=== PATIENT | female | born 2000 | race Caucasian/White ===

== ENCOUNTER 2024-03-15 16:10 | Inpatient (IN) | payer MEDICAID, OTHER ==
--- NOTE | 2024-03-15 17:44 | ED ---
General Adult HPI - General Chief complaint: Psychiatric Symptoms Stated complaint: Mental health Time Seen by Provider: 03/15/24 17:42 Source: patient, family Mode of arrival: ambulatory Limitations: language barrier, physical limitation - History of Present Illness Initial comments: Dictation was produced using [employer] dictation software. please excuse any grammatical, word or spelling errors. Chief Complaint: 24-year-old female presents for psychiatric evaluation History of Present Illness: Patient 24-year-old female with psychiatric illness presents to the emergency department mother for psychiatric evaluation. Patient apparently has had psychiatric issues in the past. She has been diagnosed with formal psychiatric disease. She has history of cochlear implant and is hard of hearing at baseline. Mother states that she has been having trouble sleeping and has been having several episodes of random crying. Patient denies any suicidal homicidal ideation. Mother and patient feel that patient needs psychiatric admission. The ROS documented in this emergency department record has been reviewed and confirmed by me. Those systems with pertinent positive or negative responses have been documented in the HPI. All other systems are other negative and/or noncontributory. - Related Data Allergies Allergy/AdvReac Type Severity Reaction Status Date / Time No Known Allergies Allergy Verified 03/15/24 16:25 Review of Systems ROS Statement: Those systems with pertinent positive or pertinent negative responses have been documented in the HPI. ROS Other: All systems not noted in ROS Statement are negative. Past Medical History Additional Past Medical History / Comment(s): Deaf - reads lips only, passive aggressive borderline personality disorder, History of Any Multi-Drug Resistant Organisms: None Reported Additional Past Surgical History / Comment(s): Cocular implant insertion Past Psychological History: Anxiety, Depression Smoking Status: Never smoker Past Alcohol Use History: None Reported Past Drug Use History: None Reported General Exam - General Exam Comments Initial Comments: General: Well-appearing, nontoxic, no acute distress. Head: Normocephalic, atraumatic Eyes: PERRLA, EOMI ENT: Airway patent Chest: Nonlabored breathing Skin: No visual rash, normal skin tone Neuro: Alert and oriented 3 Musculoskeletal: No gross abnormalities Limitations: language barrier, physical limitation Course Vital Signs 03/15/24 16:17 Temperature 98.5 F Pulse Rate 122 H Respiratory 18 Rate Blood Pressure 129/82 O2 Sat by Pulse 100 Oximetry Medical Decision Making - Medical Decision Making Was pt. sent in by a medical professional or institution (, PA, CONFERENCE INTERPRETER, urgent care, hospital, or longterm...) When possible be specific @ -No Did you speak to anyone other than the patient for history (EMS, parent, family, police, friend...)? What history was obtained from this source @ -Mother as described above Did you review nursing and triage notes (agree or disagree)? Why? @ -I reviewed and agree with nursing and triage notes Were old charts reviewed (outside hosp., previous admission, EMS record, old EKG, old radiological studies, urgent care reports/EKG's, longterm records)? Report findings @ -No old charts were reviewed Differential Diagnosis (chest pain, altered mental status, abdominal pain women, abdominal pain men, vaginal bleeding, musculoskeletal, weakness, fever, dyspnea, syncope, headache, dizziness, GI bleed, back pain, seizure, CVA, palpatations, mental health)? @ -Differential Mental Health: Depression, anxiety, bipolar, psychosis, schizophrenia, borderline personality, situational depression, adjustment disorder, behavioral disorder, brain tumor, malingering, substance abuse, encephalopathy, medication reaction, dementia, hypothyroidism, degenerative neurologic disorder, lupus.... This is not meant to be all-inclusive list EKG interpreted by me (3pts min.). @ -None done X-rays interpreted by me (1pt min.). @ -None done CT interpreted by me (1pt min.). @ -None done U/S interpreted by me (1pt. min.). @ -None done What testing was considered but not performed or refused? (CT, X-rays, U/S, labs)? Why? @ -None What meds were considered but not given or refused? Why? @ -None Was smoking cessation discussed for >3mins.? @ -No Were there social determinants of health that impacted care today? How? (Homelessness, low income, unemployed, alcoholism, drug addiction, transportation, low edu. Level, literacy, decrease access to med. care, group home, rehab)? @ -No Was there de-escalation of care discussed even if they declined (Discuss DNR or withdrawal of care, Hospice)? DNR status @ -No What co-morbidities impacted this encounter? (DM, HTN, Smoking, COPD, CAD, Cancer, CVA, ARF, Chemo, Hep., AIDS, mental health diagnosis, sleep apnea, morbid obesity)? @ -None Was patient admitted / discharged? Hospital course, mention meds given and route, prescriptions, significant lab abnormalities, going to OR and other pertinent info. @ -24-year-old female presents to the emergency department for psychiatric evaluation. Vital signs stable. Physical examination is unremarkable. Patient medically cleared for EPS evaluation Patient noted by EPS will be admitted to inpatient psychiatry unit. Did you discuss the management of the patient with other professionals (professionals i.e. , PA, CONFERENCE INTERPRETER, lab, RT, psych nurse, dialysis social worker, vending machine operator, teacher, parole or probation officer, bottle caser)? Give summary @ -Case discussed with EPS nurse Was critical care preformed (if so, how long)? @ -No Undiagnosed new problem with uncertain prognosis? @ -No Drug Therapy requiring intensive monitoring for toxicity (Heparin, Nitro, Insulin, Cardizem)? @ -No Were any procedures done? @ -No Diagnosis/symptom? Acute, or Chronic, or Acute on Chronic? Uncomplicated (without systemic symptoms) or Complicated (systemic symptoms)? @ -Psychiatric evaluation Side effects of treatment? @ -No Exacerbation, Progression, or Severe Exacerbation? @ -No Poses a threat to life or bodily function? How? (Chest pain, USA, OK, pneumonia, PE, COPD, DKA, ARF, appy, cholecystitis, CVA, Diverticulitis, Homicidal, Suicidal, threat to staff... and all critical care pts) @ -No - Lab Data Lab Results 03/15/24 03/15/24 Range/Units 18:40 18:40 Urine Opiates Screen Not Detected (NotDetected) Ur Oxycodone Screen Not Detected (NotDetected) Urine Methadone Screen Not Detected (NotDetected) Ur Barbiturates Screen Not Detected (NotDetected) U Tricyclic Antidepress Not Detected (NotDetected) Ur Phencyclidine Scrn Not Detected (NotDetected) Ur Amphetamines Screen Not Detected (NotDetected) U Methamphetamines Scrn Not Detected (NotDetected) U Benzodiazepines Scrn Not Detected (NotDetected) Urine Cocaine Screen Not Detected (NotDetected) U Marijuana (THC) Screen Detected H (NotDetected) Influenza Type A (PCR) Not Detected (Not Detectd) Influenza Type B (PCR) Not Detected (Not Detectd) RSV (PCR) Not Detected (Not Detectd) SARS-CoV-2 (PCR) Not Detected (Not Detectd) Disposition Clinical Impression: Encounter for psychiatric assessment Disposition: ADMITTED IP TO THIS [facility] Condition: Fair Referrals: Link Hidalgo MD [Primary Care Provider] - 1-2 days Decision Time: 22:36
[2024-03-15 19:01] LABS: Amphetamine Screen,Urine Not Detected (NotDetected); Barbiturate Screen,Urine Not Detected (NotDetected); Benzodiazepines Screen,Urine Not Detected (NotDetected); Cocaine Screen,Urine Not Detected (NotDetected); Methadone Screen, Urine Not Detected (NotDetected); Opiate Screen,Urine Not Detected (NotDetected); Oxycodone Screen, Urine Not Detected (NotDetected); Phencyclidine Screen,Urine Not Detected (NotDetected); Tricyclic Antidepressant,Urine Not Detected (NotDetected); Urn Cannabinoid Scrn Detected (NotDetected)
[2024-03-15] MEDS: ACETAMINOPHEN TAB 500 MG TAB PO STA (20:51)
[2024-03-15] MEDS ORDERED: diphenhydrAMINE 25 MG CAP PO PRN (22:53)
[2024-03-15] MEDS ORDERED: LORazepam 1 MG TAB PO PRN (22:53)
[2024-03-15] MEDS ORDERED: LORazepam 2 MG/ML INJ IM PRN (22:53)
[2024-03-15] MEDS ORDERED: ACETAMINOPHEN TAB 325 MG TAB PO PRN (22:53)
[2024-03-15] MEDS ORDERED: MAGNESIUM HYDROXIDE 2,400 MG/30 ML CUP PO PRN (22:53)
[2024-03-15] MEDS ORDERED: MAG HYDROX/AL HYDROX/SIMETH 355 ML BOTTLE PO PRN (22:53)
[2024-03-15] MEDS ORDERED: HALOPERIDOL LACTATE 5 MG/ML 1 ML VIAL IM PRN (22:53)
[2024-03-15] MEDS ORDERED: haloperidoL 5 MG TAB PO PRN (22:53)
[2024-03-16 01:32] LABS: Appearance,Urine Clear (Clear); Bilirubin,Urine Negative (Negative); Blood,Urine Negative (Negative); Color,Urine Colorless; Glucose,Urine (UA) Negative (Negative); Ketones,Urine Negative (Negative); Leukocyte Esterase,Urine Negative (Negative); Nitrite,Urine Negative (Negative); Protein,Urine Negative (Negative); Specific Gravity,Urine 1.013 (1.001-1.035); Urobilinogen,Urine <2.0 mg/dL (<2.0)
[2024-03-16 08:35] LABS: Basophils % (A) 1 %; Eosinophils # (A) 0.2 k/uL (0-0.7); Eosinophils % (A) 3 %; HCT 40.6 % (34.0-46.0); Lymphocytes # (A) 2.9 k/uL (1.0-4.8); Lymphocytes % (A) 41 %; MCH 30.3 pg (25.0-35.0); MCV 94.7 fL (80.0-100.0); Mean Platelet Volume 7.2; Monocytes # (A) 0.4 k/uL (0-1.0); Monocytes % (A) 6 %; Neutrophils # (A) 3.3 k/uL (1.3-7.7); Neutrophils % (A) 47 %; Platelet Count 283 k/uL (150-450); RBC 4.29 m/uL (3.80-5.40); RDW 12.3 % (11.5-15.5)
[2024-03-16 08:45] LABS: ALT 15 U/L (4-34); AST 21 U/L (14-36); African American GFR (CKD) >90 (>60 ml/min/1.73 sqM); Albumin 4.9 g/dL (3.5-5.0); Alkaline Phosphatase 66 U/L (38-126); Anion Gap 8 mmol/L; Blood Urea Nitrogen 9 mg/dL (7-17); Calcium 9.9 mg/dL (8.4-10.2); Carbon Dioxide 29 mmol/L (22-30); Chloride 103 mmol/L (98-107); Glucose 89 mg/dL (74-99); Non-African American GFR(CKD) >90 (>60 ml/min/1.73 sqM); Potassium 4.3 mmol/L (3.5-5.1); Sodium 140 mmol/L (137-145); Total Bilirubin 0.4 mg/dL (0.2-1.3); Total Protein 7.8 g/dL (6.3-8.2)
[2024-03-16] MEDS: ARIPiprazole 5 MG TAB PO SCH (09:30)
--- NOTE | 2024-03-16 11:26 | P.HP ---
Psychiatric H&P - . H&P Date: 03/16/24 History & Physical: Allergies Allergy/AdvReac Type Severity Reaction Status Date / Time No Known Allergies Allergy Verified 03/15/24 16:25 Vital Signs Temp 98.2 F 03/15/24 23:28 Pulse 96 03/15/24 23:28 Resp 18 03/15/24 23:28 BP 115/79 03/15/24 23:28 Pulse Ox 99 03/15/24 23:28 FiO2 Intake & Output 03/15/24 03/16/24 03/16/24 18:59 06:59 18:59 Weight 90.718 kg 93.8 kg Laboratory Last Values WBC 7.0 k/uL (3.8-10.6) 03/16/24 08:06 RBC 4.29 m/uL (3.80-5.40) 03/16/24 08:06 Hgb 13.0 gm/dL (11.4-16.0) 03/16/24 08:06 Hct 40.6 % (34.0-46.0) 03/16/24 08:06 MCV 94.7 fL (80.0-100.0) 03/16/24 08:06 MCH 30.3 pg (25.0-35.0) 03/16/24 08:06 MCHC 32.0 g/dL (31.0-37.0) 03/16/24 08:06 RDW 12.3 % (11.5-15.5) 03/16/24 08:06 Plt Count 283 k/uL (150-450) 03/16/24 08:06 MPV 7.2 03/16/24 08:06 Neutrophils % 47 % 03/16/24 08:06 Lymphocytes % 41 % 03/16/24 08:06 Monocytes % 6 % 03/16/24 08:06 Eosinophils % 3 % 03/16/24 08:06 Basophils % 1 % 03/16/24 08:06 Neutrophils # 3.3 k/uL (1.3-7.7) 03/16/24 08:06 Lymphocytes # 2.9 k/uL (1.0-4.8) 03/16/24 08:06 Monocytes # 0.4 k/uL (0-1.0) 03/16/24 08:06 Eosinophils # 0.2 k/uL (0-0.7) 03/16/24 08:06 Basophils # 0.0 k/uL (0-0.2) 03/16/24 08:06 Sodium 140 mmol/L (137-145) 03/16/24 08:06 Potassium 4.3 mmol/L (3.5-5.1) 03/16/24 08:06 Chloride 103 mmol/L (98-107) 03/16/24 08:06 Carbon Dioxide 29 mmol/L (22-30) 03/16/24 08:06 Anion Gap 8 mmol/L 03/16/24 08:06 BUN 9 mg/dL (7-17) 03/16/24 08:06 Creatinine 0.77 mg/dL (0.52-1.04) 03/16/24 08:06 Est GFR (CKD-EPI)AfAm >90 (>60 ml/min/1.73 sqM) 03/16/24 08:06 Est GFR (CKD-EPI)NonAf >90 (>60 ml/min/1.73 sqM) 03/16/24 08:06 Glucose 89 mg/dL (74-99) 03/16/24 08:06 Calcium 9.9 mg/dL (8.4-10.2) 03/16/24 08:06 Total Bilirubin 0.4 mg/dL (0.2-1.3) 03/16/24 08:06 AST 21 U/L (14-36) 03/16/24 08:06 ALT 15 U/L (4-34) 03/16/24 08:06 Alkaline Phosphatase 66 U/L (38-126) 03/16/24 08:06 Total Protein 7.8 g/dL (6.3-8.2) 03/16/24 08:06 Albumin 4.9 g/dL (3.5-5.0) 03/16/24 08:06 TSH 5.610 mIU/L (0.465-4.680) H 03/16/24 08:06 Urine Color Colorless 03/15/24 18:40 Urine Appearance Clear (Clear) 03/15/24 18:40 Urine pH 8.0 (5.0-8.0) 03/15/24 18:40 Ur Specific Sachse 1.013 (1.001-1.035) 03/15/24 18:40 Urine Protein Negative (Negative) 03/15/24 18:40 Urine Glucose (UA) Negative (Negative) 03/15/24 18:40 Urine Ketones Negative (Negative) 03/15/24 18:40 Urine Blood Negative (Negative) 03/15/24 18:40 Urine Nitrite Negative (Negative) 03/15/24 18:40 Urine Bilirubin Negative (Negative) 03/15/24 18:40 Urine Urobilinogen <2.0 mg/dL (<2.0) 03/15/24 18:40 Ur Leukocyte Esterase Negative (Negative) 03/15/24 18:40 Urine HCG, Qual Not Detected (Not Detectd) 03/15/24 18:40 Urine Opiates Screen Not Detected (NotDetected) 03/15/24 18:40 Ur Oxycodone Screen Not Detected (NotDetected) 03/15/24 18:40 Urine Methadone Screen Not Detected (NotDetected) 03/15/24 18:40 Ur Barbiturates Screen Not Detected (NotDetected) 03/15/24 18:40 U Tricyclic Antidepress Not Detected (NotDetected) 03/15/24 18:40 Ur Phencyclidine Scrn Not Detected (NotDetected) 03/15/24 18:40 Ur Amphetamines Screen Not Detected (NotDetected) 03/15/24 18:40 U Methamphetamines Scrn Not Detected (NotDetected) 03/15/24 18:40 U Benzodiazepines Scrn Not Detected (NotDetected) 03/15/24 18:40 Urine Cocaine Screen Not Detected (NotDetected) 03/15/24 18:40 U Marijuana (THC) Screen Detected (NotDetected) H 03/15/24 18:40 Influenza Type A (PCR) Not Detected (Not Detectd) 03/15/24 18:40 Influenza Type B (PCR) Not Detected (Not Detectd) 03/15/24 18:40 RSV (PCR) Not Detected (Not Detectd) 03/15/24 18:40 SARS-CoV-2 (PCR) Not Detected (Not Detectd) 03/15/24 18:40 03/16/24 10:31 IDENTIFYING DATA: Patient is a 24-year-old female, unemployed and living at home with mother CHIEF COMPLAINT: Psychosis HPI: Patient presented to the hospital with her mother for mental health concerns. EPS note revealed, "Clinical Science Consultant met with pt and her mother in ER RM 13 from [id number] [phone]. Patient was resting on stretcher, tearful, with blanket covering her face. Patient initially spoke with writer technical publications alone and then allowed writer technical publications to speak with mother. Per mother patient requested to come to the ER for help today, this has been an ongoing issue over the last 2 yrs. Patient states 2 yrs ago her boyfriend cheated on her over a period of 3 months and this was her first boyfriend, they broke up. A few months later (approx 1.5 yrs ago) pt reached out to her biological father who she had not seen since age 6, pt reached out to father on social media without her mother knowing. Per mother, pt has been labile, impulsive: had random man come to their house to fruit picker pt and he ended up taking her to [facility] but they were closing so the biological father from [place] drove to pick her up. Patient met with biological father, felt unsafe and called 911. During assessment, patient is focused on "people can't federal judge me or tell me I can't wear makeup, they can't look at my face". Patient admits to SI with no plan but has been picking her face since the incident with her father, pt states she stopped picking, however mother denies this and patient face was actively open in spots, bleeding. Patient focused on others looking at her, watching her. Patient denies HI, however pt mother states pt had told her 6 y/o niece she has a lot of knifes at the house where mom doesn't know. Patient teaful during assessment, stating " I have no friends, I have never fit in with the hearing world, I can't concentrate because so much is going on in my head". Patient denies A/VH. Patient appears to be obsessive during assessment, moving tongue all around her lips repeatedly; pt mother states pt was picking face in ER prior to writer technical publications entering. Pt mother states it is "like walking on egg shells" being around the pt because she often "goes off", yelling and having aggression towards family. Pt mother states pt sisters no longer let pt be around her nieces and nephews alone because they are afraid what pt may do or say to them. Pt repeatedly tells writer technical publications " everyone says wrong things to me, I don't deserve that". During assessment pt is focused on discussing her face and her "bio dad". Patient has not spoke to biologcal father since incident 1.5 yrs ago. Patient rates depression 12/31 and anxiety 10. Patient admits to SI with no plan. Patient has no IP psych hx. Patient is deaf and has cochlear implant, hearing aide. Patient has tried speaking with counselors over the last 2 yrs. Patient states "I can't concentrate to eat", Pt appears unkempt, denies issues with sleep but states she has so much going on in her mind. Patient does not take medications other then control. Pt mother states pt has never been tested for cognitive delay or autism, pt states she was in regular classes in school but had a para-pro helper." Patient seen and evaluated on the unit and was agreeable with speaking to writer technical publications in office. She was notably disorganized, wandering about the unit and asking where her room was. She states having issues with her mom because she looks like her dad. Patient was fixated on her face and how her mother made her feel due to her commenting on her face. Patient notably was A&Ox3. Patient states looking at her dad however her mother does not like her face. Patient reports grandiosity, difficulties with sleep, paranoia and was notably hyperverbal. Patient denies any appetite changes, anhedonia, energy changes, feeling guilty or racing thoughts. Patient denies any suicidal or homicidal ideations intent or plan. At this time patient denies any auditory or visual hallucinations. Patient admits to using no substances. PAST PSYCHIATRIC HISTORY: Patient denies any past psych history. Patient denies being on any psychiatric medications. Patient denies any previous psychiatric hospitalizations. Patient denies any psychiatric outpatient follow-up. Patient denies any history of suicide attempts in the past. PMH: as per ER note ALLERGIES: as per EMR SUBSTANCE USE HISTORY: Patient denies any substances FAMILY PSYCHIATRIC/SUBSTANCE USE HISTORY: Denies SOCIAL HISTORY: Patient was born and raised in [place]. She is single and has no children. She completed high school. She is unemployed. MENTAL STATUS EXAM: General Appearance: Patient appears to be stated age is alert, directable, and attempts to cooperate. Patient appears to have poor hygiene and grooming. Behavior: Patient is seated without any agitated behavior. She is notably tearful and anxious Speech: Patient's speech is hyperverbal but interruptible Mood/Affect: Patient reports their mood is "upset", affect is congruent and constricted. Suicidality/Homicidality: Patient denies having any homicidal ideation intent or plan. Denies any suicidal ideations intent or plan Perceptions: Patient denies any visual hallucinations and denies any auditory hallucinations Though content/process: There is evidence of disorganized thoughts, paranoia Memory and concentration: AOX3, grossly intact for the purposes of this session. Can spell "WORLD" backwards Judgment and insight: Poor STRENGTHS/WEAKNESSES: strength is that patient is resilient, has family support, uses no substances. Weakness is that patient has poor judgment and is impulsive INTELLECT: Average IMPRESSIONS: Psychosis unspecified Rule out schizophrenia versus schizoaffective disorder versus bipolar disorder Rule out intellectual disability PLAN: -Patient is admitted under voluntary status to MHU for stabilization of psychiatric symptoms and safety. Patient has signed adult voluntary form and medication consent and is placed in patient's chart. -Medications : Start Abilify 5 mg daily for psychosis -Ativan and Haldol PRN for agitation/aggression -Patient was informed of the risks, benefits and side effects of the medication and patient verbally consented to taking the medications. Patient signed med consent form and was placed in chart. -Internal Medicine consult to perform medical evaluation and physical. -NRT -not needed as patient does not smoke -SW on board for discharge planning. Encourage patient to participanot needed as patient does not smoke and Haldol medication consent adult voluntary form and voluntary Average has poor judgment and is impulsive resilient Poor and denies any auditory hallucinations Denies any suicidal ideations intent or plan poor directable, and attempts to cooperate Denies Patient denies any history of suicide attempts in the past. Patient denies any psychiatric outpatient follow- up. Patient denies any previous psychiatric hospitalizations. Patient denies being on any psychiatric medications. te in groups to work on coping skills. 03/16/24 11:26
--- NOTE | 2024-03-16 14:19 | P.MDCNMH ---
History of Present Illness H&P Date: 03/16/24 History of present illness; patient is a 24-year-old lady with past medical history significant for cochlear implant who presented to the ER for psychiatric evaluation. Patient was brought by her mother according to her patient has been very emotional recently and has been crying randomly. Patient has also been having trouble sleeping. Patient denies any auditory or visual hallucinations. Denies any suicidal or homicidal thoughts. Patient mother noted that the patient has labile mood and gets aggressive certainly. Initial lab work done in the ER showed CBC 7, hemoglobin 13, platelet count 283, sodium 141 potassium 4.3, BUN 9, creatinine 0.77, AST 21, ALT 15, UA negative for infection Urine drug screen positive for marijuana Influenza A not detected Influenza B not detected RSV not detected COVID-19 not detected Patient admitted to inpatient psychiatry REVIEW OF SYSTEMS: CONSTITUTIONAL: No fever, no malaise, no fatigue. HEENT: No recent visual problems or hearing problems. Denied any sore throat. CARDIOVASCULAR: No chest pain, orthopnea, PND, no palpitations, no syncope. PULMONARY: No shortness of breath, no cough, no hemoptysis. GASTROINTESTINAL: No diarrhea, no nausea, no vomiting, no abdominal pain. NEUROLOGICAL: No headaches, no weakness, no numbness. HEMATOLOGICAL: Denies any bleeding or petechiae. GENITOURINARY: Denies any burning micturition, frequency, or urgency. MUSCULOSKELETAL/RHEUMATOLOGICAL: Denies any joint pain, swelling, or any muscle pain. ENDOCRINE: Denies any polyuria or polydipsia. The rest of the 14-point review of systems is negative. PHYSICAL EXAMINATION: GENERAL: The patient is alert and oriented x3, not in any acute distress. Well developed, well nourished. HEENT: Pupils are round and equally reacting to light. EOMI. No scleral icterus. No conjunctival pallor. Normocephalic, atraumatic. No pharyngeal erythema. No thyromegaly. CARDIOVASCULAR: S1 and S2 present. No murmurs, rubs, or gallops. PULMONARY: Chest is clear to auscultation, no wheezing or crackles. ABDOMEN: Soft, nontender, nondistended, normoactive bowel sounds. No palpable organomegaly. MUSCULOSKELETAL: No joint swelling or deformity. EXTREMITIES: No cyanosis, clubbing, or pedal edema. NEUROLOGICAL: Gross neurological examination did not reveal any focal deficits. SKIN: No rashes. Assessment and plan Psychosis unspecified History of cochlear implant Monitor vital signs Elopement precaution Continue psych meds per psychiatry team Labs and medication were reviewed.. Continue same treatment. Continue with symptomatic treatment. Resume home medication. Monitor labs and vitals. DVT and GI prophylaxis. Further recommendations as per clinical course of the patient Dictation was produced using [employer] dictation software. please excuse any grammatical, word or spelling errors. Past Medical History Additional Past Medical History / Comment(s): Deaf, has cochlear implant History of Any Multi-Drug Resistant Organisms: None Reported Additional Past Surgical History / Comment(s): Cocular implant insertion Past Anesthesia/Blood Transfusion Reactions: No Reported Reaction Past Psychological History: Anxiety, Depression Smoking Status: Never smoker Past Alcohol Use History: None Reported Past Drug Use History: Marijuana - Past Family History Mother History Unknown: Yes Medications and Allergies Allergies Allergy/AdvReac Type Severity Reaction Status Date / Time No Known Allergies Allergy Verified 03/15/24 16:25 Physical Exam Vitals: Vital Signs Temp Pulse Pulse Resp BP BP Pulse Ox 03/15/24 23:28 98.2 F 96 18 115/79 99 03/15/24 23:12 98.0 F 107 H 16 126/64 98 03/15/24 16:17 98.5 F 122 H 18 129/82 100 Intake and Output 03/15/24 03/16/24 03/16/24 22:59 06:59 14:59 Other: Weight 93.8 kg 93.8 kg Cranial Nerve Examination - Cranial Nerves Cranial Nerve II- Optic: Intact (Cranial nerves II to XII intact) Cranial Nerve III- Oculomotor: Intact Cranial Nerve IV- Trochlear: Intact Cranial Nerve V- Trigeminal: Intact Cranial Nerve - Abducens: Intact Cranial Nerve VII- Facial: Intact Cranial Nerve VIII- Auditory: Intact Cranial Nerve IX- Glossopharyngeal: Intact Cranial Nerve X- Vagus: Intact Cranial Nerve XI- Accessory: Intact Cranial Nerve XII- Hypoglossal: Intact Results CBC & Chem 7: 03/16/24 08:06 03/16/24 08:06 Labs: Abnormal Lab Results - Last 24 Hours (Table) 03/15/24 03/16/24 Range/Units 18:40 08:06 TSH 5.610 H (0.465-4.680) mIU/L U Marijuana (THC) Screen Detected H (NotDetected)
[2024-03-16 15:42] LABS: Chol/HDL Ratio 2.68 Ratio; LDL Cholesterol,Calculated 106.9 mg/dL (0.0-131.0); VLDL Calculation 18.64 mg/dL (5.00-40.00)
[2024-03-17 07:03] VITALS: RESP 16
[2024-03-17] MEDS: ARIPiprazole 5 MG TAB PO ONE (09:25)
--- NOTE | 2024-03-17 09:28 | P.PN ---
Progress Note - Text Progress Note Date: 03/17/24 Interval History: Patient was seen in her room and was directable and agreeable to speak with wr iter in the office. Patient continues to display paranoia, disorganized and fixated thoughts on her parents and her mother treatment towards her. Patient states struggling with her mom being unhappy with her face since she looks like her dad. Attempted to redirect patient several times however she continued to return to her issues with her parents and her mother. She states otherwise sleeping and eating well. She states her mother will be visiting today for visitations. At this time patient denies any suicidal or homicidal ideations, intent or plan. Patient denies any auditory, visual hallucinations. Patient denies any side effects from the medications and has been compliant with meds. Mental Status Exam: General Appearance: Patient appears to be stated age is alert, directable, and cooperative. Behavior: Patient is calmly seated without any agitated behavior. Patient is tearful Speech: Patient's speech is fluent and nonpressured. Mood/Affect: Mood is improving mildly, affect is congruent and constricted. Suicidality/Homicidality: Patient denies having any suicidal or homicidal ideation intent or plan. Perceptions: Patient denies any visual hallucinations and denies any auditory hallucinations Though content/process: There is evidence of disorganized thoughts with paranoia Memory and concentration: AOX3, grossly intact for the purposes of this session Judgment and insight: Improving mildly Assessment Psychosis, unspecified Rule out schizophrenia versus schizoaffective disorder Rule out intellectual disability Plan: -Patient continues to meet criteria for inpatient psychiatric admission for symptom stabilization and safety. Patient has signed adult voluntary form and medication consent and was placed in patient's chart. -Medications: Increase Abilify to 7.5 mg daily for psychosis -When necessary Ativan and Haldol for agitation/aggression. -Labs: TSH elevated but free T4 within normal limits -SW on board for discharge planning. Encouraged the patient to participate in milieu.
[2024-03-18] MEDS: ARIPiprazole 10 MG TAB PO SCH (08:24)
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
[2024-03-19] MEDS ORDERED: FLUTICASONE NASAL 50MCG/SPRAY 16GM BTL EA NOSTRIL PRN (09:58)
[2024-03-19] MEDS: ARIPiprazole 5 MG TAB PO ONE (10:09)
--- NOTE | 2024-03-19 10:21 | P.PN ---
Progress Note - Text Progress Note Date: 03/19/24 Interval History: Patient was seen in the [facility] and was directable and agreeable to speak with commercial lines underwriter in the office. She states sleeping well however continues to display paranoia, feeling as though her mom was judging her face prior to admission however patient does appear to be less fixated on this than previous encounters. She states not speaking to her mother however she is okay with returning home with her. Patient talked about her employment, working at a [employer] for the last 7 years which provides her fulfillment. Patient states having difficulties with assimilating with society given her hearing impairments. At this time patient denies any suicidal or homicidal ideations, intent or plan. Patient denies any auditory, visual hallucinations and denies any delusions. Patient denies any side effects from the medications and has been compliant with meds. Mental Status Exam: General Appearance: Patient appears to be stated age is alert, directable, and cooperative. Behavior: Patient is calmly seated without any agitated behavior. Speech: Patient's speech is fluent and nonpressured. Mood/Affect: Mood is improving mildly, affect is congruent and blunted. Suicidality/Homicidality: Patient denies having any suicidal or homicidal ideation intent or plan. Perceptions: Patient denies any visual hallucinations and denies any auditory hallucinations Though content/process: There is evidence of paranoia and patient is fixated on mom judging her face however improving Memory and concentration: AOX3, grossly intact for the purposes of this session Judgment and insight: Improving mildly Assessment Psychosis, unspecified Rule out schizophrenia versus schizoaffective disorder Rule out intellectual disability Plan: -Patient continues to meet criteria for inpatient psychiatric admission for symptom stabilization and safety. Patient has signed adult voluntary form and medication consent and was placed in patient's chart. -Medications: Increase Abilify to 12.5 mg daily today for psychosis, will increase over the weekend -When necessary Ativan and Haldol for agitation/aggression. -Labs: TSH elevated however free T4 within normal limits -SW on board for discharge planning. Encouraged the patient to participate in milieu. Anticipate discharge early next week, home with mom
[2024-03-20] MEDS: ARIPiprazole 15 MG TAB PO SCH (07:49)
--- NOTE | 2024-03-20 12:08 | P.PN ---
Subjective Progress Note Date: 03/20/24 Principal diagnosis: psychosis NOS Patient was seen in the [facility] [place] and was directable and agreeable to speak with technical document writer in the office. She states sleeping well. She continues to display paranoia, feeling as though her mom was judging her face prior to admission. The patient says I look too much like my biological father that's why my mother hates me. she is fixated on trying to locate her biological father was not talk to her in 15 years. She has a vivid memory of her mom and dad arguing. The patient was 6 and was eating between them in the car and they were arguing over her. She says I love my dad and I want to contacthim. Mental Status Exam:she has a lot of trouble understanding simple sentences one has to keep her explaining. She tends to read statements in a negative way when there is nothing in the content that would suggest that. General Appearance: Patient appears to be stated age is alert, directable, and cooperative. Behavior: Patient is calmly seated without any agitated behavior. Speech: Patient's speech is fluent and nonpressured. Mood/Affect: Mood is improving mildly, affect is congruent and blunted. Suicidality/Homicidality: Patient denies having any suicidal or homicidal ideation intent or plan. Perceptions: Patient denies any visual hallucinations and denies any auditory hallucinations Though content/process: There is evidence of paranoia and patient is fixated on mom judging her face however improving Memory and concentration: AOX3, grossly intact for the purposes of this session Judgment and insight: Improving mildly. She says she is tolerating the medications well Assessment Psychosis, unspecified Rule out schizophrenia versus schizoaffective disorder Rule out intellectual disability Plan: -Patient continues to meet criteria for inpatient psychiatric admission for symptom stabilization and safety. Patient has signed adult voluntary form and medication consent and was placed in patient's chart. -Medications: Increase Abilify to 15 mg daily today for psychosis, will increase over the weekend -When necessary Ativan and Haldol for agitation/aggression. -Labs: TSH elevated however free T4 within normal limits -SW on board for discharge planning. Encouraged the patient to participate in milieu. Anticipate discharge early next week, home with mom Objective - Vital Signs Vital signs: Vital Signs Temp 97 F L 03/19/24 09:10 Pulse 115 H 03/19/24 09:10 Resp 16 12/25/24 06:51 BP 134/84 03/19/24 09:10 Pulse Ox 100 03/19/24 09:10 FiO2 - Labs CBC & Chem 7: 03/16/24 08:06 03/16/24 08:06
[2024-03-20] MEDS: IBUPROFEN 600 MG TAB PO PRN (19:07)
--- NOTE | 2024-03-21 10:12 | P.PN ---
Subjective Progress Note Date: 03/21/24 Principal diagnosis: psychosis NOS Patient was seen in the [facility] [place] and was directable and agreeable to speak with senior grant writer in the office. She statesthat she is sleeping well. she says she is eating well and that she is made up her mind she'll does have to set limits on mom and not let her bother her. She says "you can't really change people so he have to live with them the way they are" Mental Status Exam:she has a lot of trouble understanding simple sentences one has to keep explaining. I think this is probably from the hearing issue . She has good self-care gait and station are normal good eye contact. She is almost overly positive General Appearance: Patient appears to be stated age is alert, directable, and cooperative. Behavior: Patient is calmly seated without any agitated behavior. Speech: Patient's speech is fluent and nonpressured. Mood/Affect: Mood is positive, affect is congruent and blunted. Suicidality/Homicidality: Patient denies having any suicidal or homicidal ideation intent or plan. Perceptions: Patient denies any visual hallucinations and denies any auditory hallucinations Though content/process: There is evidence of paranoia and patient is fixated on mom judging her face however improving Memory and concentration: AOX3, grossly intact for the purposes of this session Judgment and insight: Improving mildly. She says she is tolerating the medications well Assessment Psychosis, unspecifiedwhich seems to be doing better on the Abilify 15 Rule out schizophrenia versus schizoaffective disorder Rule out intellectual disability Plan: -Patient continues to meet criteria for inpatient psychiatric admission for symptom stabilization and safety. Patient has signed adult voluntary form and medication consent and was placed in patient's chart. -Medications: continue Abilify 15 mg daily for psychosis -When necessary Ativan and Haldol for agitation/aggression. -Labs: TSH elevated however free T4 within normal limits -SW on board for discharge planning. Encouraged the patient to participate in milieu. Anticipate discharge early next week, home with momof any problems with that Abiliframírez think he had 15 last night what is Objective - Vital Signs Vital signs: Vital Signs Temp 97.5 F L 03/21/24 06:39 Pulse 114 H 03/21/24 06:39 Resp 16 03/21/24 06:39 BP 128/72 03/21/24 06:39 Pulse Ox 98 03/21/24 06:39 FiO2 - Labs CBC & Chem 7: 03/16/24 08:06 03/16/24 08:06
[2024-03-22] MEDS: ARIPiprazole 5 MG TAB PO ONE (10:37)
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
[2024-03-23 06:36] VITALS: BP 113/63; PULSE 99; TEMP 98.2
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
== END 2024-03-23 12:25 | disposition home or self-care (01) | DRG 751 ==
LOC: EC 16:10 → 3MHU 22:42
PROVIDERS: ADMIT Psychiatry & Neurology Psychiatry; ATTEND Psychiatry & Neurology Psychiatry
DX: F29 Unspecified psychosis not due to a substance or known physiological condition (principal); F42.4 Excoriation (skin-picking) disorder; F32.A Depression, unspecified; F41.9 Anxiety disorder, unspecified; F60.89 Other specific personality disorders; F60.3 Borderline personality disorder; H91.90 Unspecified hearing loss, unspecified ear; Z56.0 Unemployment, unspecified; Z79.899 Other long term (current) drug therapy
CPT/HCPCS: 80053; 80061; 80306; 81003; 81025; 82075; 83036; 84439; 84443; 85025; 87636; 99285

== ENCOUNTER 2024-05-20 18:27 | Emergency (ER) | payer OTHER ==
--- NOTE | 2024-05-20 18:42 | ED ---
Psych HPI - General Source: patient, family, RN notes reviewed Limitations: language barrier (deaf) <Shanel Lombardo - Last Filed: 05/20/24 18:41> - General Source: patient, family, RN notes reviewed Limitations: no limitations <Petros Guzman - Last Filed: 05/20/24 20:36> <Dulce Romo - Last Filed: 05/21/24 12:22> - General Stated Complaint: mental health Time Seen by Provider: 05/20/24 18:41 - History of Present Illness Initial Comments: Quick note: 24-year-old female accompanied by her mother presented to the ER for mental health evaluation. Patient is hard of hearing and HPI is obtained through mother. She states patient was recently admitted in February and diag nosed as bipolar. Patient is currently on Abilify 30 mg daily. Mother reports over the past week patient has been extremely manic and paranoid. No SI or HI. (Shanel Lombardo) Patient is a 24-year-old female present to the emergency department for mental health evaluation. Patient has history of depression. Patient is feeling hopeless. Patient is sleeping around 16 hours/day. Patient sometimes has loss of appetite. Patient did have similar symptoms hospitalized a couple months ago. Patient discharged on Abilify. On follow-up with primary care physician this was increased however patient still has worsening symptoms. No alcohol or street drug use. (Petros Guzman) - Related Data Home Medications Medication Instructions Recorded Confirmed ARIPiprazole [Abilify] 30 mg PO DAILY 05/20/24 05/20/24 Fluticasone Nasal [place] [Flonase 1 spr EA NOSTRIL DAILY 05/20/24 05/20/24 Nasal [place]] norgestimate-ethinyl estradioL 1 tab PO HS 05/20/24 05/20/24 [Tri-Sprintec Tablet] Previous Rx's Medication Instructions Recorded hydrOXYzine pamoate [Vistaril] 50 mg PO BID PRN 7 Days #14 capsule 05/20/24 Allergies Allergy/AdvReac Type Severity Reaction Status Date / Time No Known Allergies Allergy Verified 05/20/24 21:16 Review of Systems ROS Other: All systems not noted in ROS Statement are negative. <Shanel Lombardo - Last Filed: 05/20/24 18:41> ROS Other: All systems not noted in ROS Statement are negative. Constitutional: Denies: fever Eyes: Denies: eye pain ENT: Denies: ear pain Respiratory: Denies: cough Cardiovascular: Denies: chest pain Endocrine: Denies: fatigue Gastrointestinal: Denies: abdominal pain Psychiatric: Reports: as per HPI, anxiety, depression <Petros Guzman - Last Filed: 05/20/24 20:36> ROS Other: All systems not noted in ROS Statement are negative. <Dulce Romo - Last Filed: 05/21/24 12:22> ROS Statement: Those systems with pertinent positive or pertinent negative responses have been documented in the HPI. Past Medical History Additional Past Medical History / Comment(s): Deaf, has cochlear implant History of Any Multi-Drug Resistant Organisms: None Reported Additional Past Surgical History / Comment(s): Cocular implant insertion Past Anesthesia/Blood Transfusion Reactions: No Reported Reaction Past Psychological History: Anxiety, Depression Smoking Status: Never smoker Past Alcohol Use History: None Reported Past Drug Use History: Marijuana - Past Family History Mother History Unknown: Yes <Shanel Lombardo - Last Filed: 05/20/24 18:41> General Exam <Shanel Lombardo - Last Filed: 05/20/24 18:41> Limitations: no limitations General appearance: alert, in no apparent distress Head exam: Present: atraumatic Eye exam: Present: normal appearance ENT exam: Present: other (Cochlear implant present on the right) Neck exam: Present: normal inspection Respiratory exam: Present: normal lung sounds bilaterally Cardiovascular Exam: Present: regular rate, normal rhythm GI/Abdominal exam: Present: soft. Absent: tenderness Extremities exam: Present: normal inspection Neurological exam: Present: alert Psychiatric exam: Present: flat affect Skin exam: Present: normal color <Petros Guzman - Last Filed: 05/20/24 20:36> - General Exam Comments Initial Comments: Visual Physical Exam Vital signs reviewed General: Well-appearing, nontoxic, no acute distress. Head: Normocephalic, atraumatic Eyes: PERRLA, EOMI ENT: Airway patent Chest: Nonlabored breathing Skin: No visual rash, normal skin tone Neuro: Alert and oriented 3 Musculoskeletal: No gross abnormalities (Shanel Lombardo) Course Vital Signs 05/20/24 05/20/24 18:43 22:14 Temperature 98.0 F 98.4 F Pulse Rate 115 H 116 H Respiratory 20 16 Rate Blood Pressure 122/86 137/86 O2 Sat by Pulse 100 98 Oximetry Medical Decision Making <Shanel Lombardo - Last Filed: 05/20/24 18:41> <Petros Guzman - Last Filed: 05/20/24 20:36> <Dulce - Last Filed: 05/21/24 12:22> - Medical Decision Making I performed the quick note portion of this chart. Electronically signed by Shanel Lombardo PA-C (Shanel Lombardo) Was pt. sent in by a medical professional or institution (LEOBARDO Gregg, SCHOOL CURRICULUM DEVELOPER, urgent care, hospital, or jail...) When possible be specific @ -No Did you speak to anyone other than the patient for history (EMS, parent, family, police, friend...)? What history was obtained from this source @ -Mother is present and helps provide additional history including medication that the patient was on and dosing and recent visits Did you review nursing and triage notes (agree or disagree)? Why? @ -I reviewed and agree with nursing and triage notes Were old charts reviewed (outside hosp., previous admission, EMS record, old EKG, old radiological studies, urgent care reports/EKG's, jail records)? Report findings @ -No old charts were reviewed Differential Diagnosis (chest pain, altered mental status, abdominal pain women, abdominal pain men, vaginal bleeding, weakness, fever, dyspnea, syncope, headache, dizziness, GI bleed, back pain, seizure, CVA, palpatations, mental health, musculoskeletal)? @ -Differential Mental Health Depression, anxiety, bipolar, psychosis, schizophrenia, borderline personality, situational depression, adjustment disorder, behavioral disorder, brain tumor, malingering, substance abuse, encephalopathy, medication reaction, dementia, hypothyroidism, degenerative neurologic disorder, lupus.... This is not meant to be all-inclusive list EKG interpreted by me (3pts min.). @ -As above X-rays interpreted by me (1pt min.). @ -None done CT interpreted by me (1pt min.). @ -None done U/S interpreted by me (1pt. min.). @ -None done What testing was considered but not performed or refused? (CT, X-rays, U/S, labs)? Why? @ -None What meds were considered but not given or refused? Why? @ -None Did you discuss the management of the patient with other professionals (professionals i.e. , PA, SCHOOL CURRICULUM DEVELOPER, lab, RT, psych nurse, director social welfare, mail rider, teacher, occupational health and safety officer, case operator)? Give summary @ -No Was smoking cessation discussed for >3mins.? @ -Mental health nurse Was critical care preformed (if so, how long)? @ -No Were there social determinants of health that impacted care today? How? (Homelessness, low income, unemployed, alcoholism, drug addiction, transportation, low edu. Level, literacy, decrease access to med. care, half-way, rehab)? @ -No Was there de-escalation of care discussed even if they declined (Discuss DNR or withdrawal of care, Hospice)? DNR status @ -No What co-morbidities impacted this encounter? (DM, HTN, Smoking, COPD, CAD, Cancer, CVA, ARF, Chemo, Hep., AIDS, mental health diagnosis, sleep apnea, morbid obesity)? @ -History of depression with recent admission Was patient admitted / discharged? Hospital course, mention meds given and route, prescriptions, significant lab abnormalities, going to OR and other pertinent info. @ -Patient presents with worsening depression. Patient is sleeping 16 hours a day. Patient cleared to be seen and treated and further disposition by mental health. Undiagnosed new problem with uncertain prognosis? @ -No Drug Therapy requiring intensive monitoring for toxicity (Heparin, Nitro, Insulin, Cardizem)? @ -No Were any procedures done? @ -No Diagnosis/symptom? @ -Depression Acute, or Chronic, or Acute on Chronic? @ -Acute on chronic Uncomplicated (without systemic symptoms) or Complicated (systemic symptoms)? @ -Default Side effects of treatment? @ -No Exacerbation, Progression, or Severe Exacerbation? @ -No Poses a threat to life or bodily function? How? (Chest pain, [place], IA, pneumonia, PE, COPD, DKA, ARF, appy, cholecystitis, CVA, Diverticulitis, Homicidal, Suicidal, threat to staff... and all critical care pts) @ -No (Petros Guzman) I was alerted by EPS RN that patient has been safety planned and medically cleared for discharge home. Psychiatrist recommends 50 mg vistaril BID PRN. A script for one week of this will be sent to pt's pharmacy. Confirmed with patient and member at bedside that they are comfortable with this plan and ready for discharge. Patient was discharged in stable condition. (Dulce Romo) - Lab Data Lab Results 05/20/24 Range/Units 19:48 Urine Opiates Screen Not Detected (NotDetected) Ur Oxycodone Screen Not Detected (NotDetected) Urine Methadone Screen Not Detected (NotDetected) Ur Barbiturates Screen Not Detected (NotDetected) U Tricyclic Antidepress Not Detected (NotDetected) Ur Phencyclidine Scrn Not Detected (NotDetected) Ur Amphetamines Screen Not Detected (NotDetected) U Methamphetamines Scrn Not Detected (NotDetected) U Benzodiazepines Scrn Not Detected (NotDetected) Urine Cocaine Screen Not Detected (NotDetected) U Marijuana (THC) Screen Not Detected (NotDetected) Disposition <Shanel Lombardo - Last Filed: 05/20/24 18:41> Is patient prescribed a controlled substance at d/c from ED?: No <Petros Guzman - Last Filed: 05/20/24 20:36> Is patient prescribed a controlled substance at d/c from ED?: No <Dulce Romo - Last Filed: 05/21/24 12:22> Clinical Impression: Depression, Acute anxiety Disposition: HOME SELF-CARE Condition: Stable Instructions (If sedation given, give patient instructions): Anxiety (ED) Additional Instructions: Every disease is a spectrum and a small chance still exists that a serious condition could develop, for this reason, please monitor yourself closely for new, changing or worsening symptoms, symptoms that begin to improve in the next 72 hours, thoughts of wanting to kill or harm yourself, kill or harm others, seeing or hearing things that are not there, concerns for your safety, inability to tolerate/keep down fluids or your medications, inability to follow up with outpatient providers as instructed and should you experience these symptoms or should you have any further concerns for your wellbeing please return to the ED or call 911 immediately. Please follow safety plan as created between yourself and psychiatric nurse. PLEASE call your primary care physician as soon as possible to arrange / discuss plan for followup appointment. Appointment in the next 1-3 days is strongly encouraged if possible. PLEASE let us know here before you leave if there is anything further we can do to be of any assistance. Take care and feel Better! Prescriptions: hydrOXYzine pamoate [Vistaril] 50 mg PO BID PRN 7 Days #14 capsule PRN Reason: Anxiety Referrals: Link Hidalgo MD [Primary Care Provider] - 1-2 days
[2024-05-20 20:11] LABS: Amphetamine Screen,Urine Not Detected (NotDetected); Barbiturate Screen,Urine Not Detected (NotDetected); Benzodiazepines Screen,Urine Not Detected (NotDetected); Cocaine Screen,Urine Not Detected (NotDetected); Methadone Screen, Urine Not Detected (NotDetected); Opiate Screen,Urine Not Detected (NotDetected); Oxycodone Screen, Urine Not Detected (NotDetected); Phencyclidine Screen,Urine Not Detected (NotDetected); Tricyclic Antidepressant,Urine Not Detected (NotDetected); Urn Cannabinoid Scrn Not Detected (NotDetected)
[2024-05-20] MEDS: IBUPROFEN 600 MG TAB PO STA (21:15)
[2024-05-20 22:17] VITALS: BP 137/86; PULSE 116; RESP 16; TEMP 98.4
== END 2024-05-20 22:17 | disposition home or self-care (01) ==
LOC: EC 18:27
DX: F32.A Depression, unspecified (principal); F41.9 Anxiety disorder, unspecified; Z79.899 Other long term (current) drug therapy
CPT/HCPCS: 80306; 82075; 99283

== ENCOUNTER 2024-07-21 17:44 | Emergency (ER) | payer OTHER ==
[2024-07-21 18:06] VITALS: BP 128/82; PULSE 100; RESP 18; TEMP 98.7
--- NOTE | 2024-07-21 18:07 | ED ---
Psych HPI - General Source: family, RN notes reviewed Mode of arrival: ambulatory Limitations: no limitations <Martinez Shaffer - Last Filed: 07/21/24 18:04> - General Source: patient, family, RN notes reviewed, old records reviewed <Ramakrishna Daniel - Last Filed: 07/21/24 20:52> - General Stated Complaint: Mental health eval Time Seen by Provider: 07/21/24 18:00 - History of Present Illness Initial Comments: Quick note: This is a 24-year-old female presenting with mother for ongoing psychiatric symptoms. Mother states patient has been emotional, crying and yelling at her on almost daily basis. [facility] patient has had "no good days" for the past 2 years. [facility] patient was admitted through this ER on 03/15/2025 for 1 week, receiving diagnosis of bipolar disorder and currently taking Abilify and oxycarbazepine. [facility] patient saw a psychiatrist, Pedro Scherer, several weeks ago with her next appointment on 08/05/2024. [facility] patient also sees Dr. Hidalgo. Patient denies SI/HI. (Martinez Shaffer) Patient originally seen as a quick note. Presents with her mother for psychiatric evaluation. Has a history of deafness. Also history of bipolar. Has been compliant with medications. Apparently patient has been having more ups and downs lately in terms of mood. Patient's mother is concerned that may be related to medications. Wants her to be evaluated. Patient denies any suicidal or homicidal ideations, attempts, plans. Denies any hallucinations. Denies any drug use. Presents for further evaluation at this time. Originally seen as a quick note. I evaluate the patient when she was placed in a room. D oes follow-up with her psychiatrist. (Ramakrishna Daniel) - Related Data Home Medications Medication Instructions Recorded Confirmed Fluticasone Nasal [place] [Flonase 1 spr EA NOSTRIL DAILY 05/20/24 07/21/24 Nasal [place]] ARIPiprazole [Abilify] 20 mg PO DAILY 07/21/24 07/21/24 Medroxyprogesterone Acetate 150 mg IM Q90D 07/21/24 07/21/24 [Depo-Provera] OXcarbazepine 300 mg PO BID 07/21/24 07/21/24 Allergies Allergy/AdvReac Type Severity Reaction Status Date / Time No Known Allergies Allergy Verified 07/21/24 20:01 Review of Systems ROS Other: All systems not noted in ROS Statement are negative. <Martinez Shaffer - Last Filed: 07/21/24 18:04> ROS Other: All systems not noted in ROS Statement are negative. <Ramakrishna Daniel - Last Filed: 07/21/24 20:52> ROS Statement: Those systems with pertinent positive or pertinent negative responses have been documented in the HPI. Review of Systems: CONST: Denies fever EYES: Denies blurry vision ENT: Denies nasal congestion C/V: Denies Chest pain RESP: Denies shortness of breath GI: Denies abdominal pain : Denies dysuria SKIN: Denies rash. MSK: Denies joint pain. NEURO: Denies headache (Ramakrishna Daniel) Past Medical History Additional Past Medical History / Comment(s): Deaf, has cochlear implant History of Any Multi-Drug Resistant Organisms: None Reported Additional Past Surgical History / Comment(s): Cocular implant insertion Past Anesthesia/Blood Transfusion Reactions: No Reported Reaction Past Psychological History: Anxiety, Depression Smoking Status: Never smoker Past Alcohol Use History: None Reported Past Drug Use History: Marijuana - Past Family History Mother History Unknown: Yes <Martinez Shaffer - Last Filed: 07/21/24 18:04> General Exam <Martinez Shaffer - Last Filed: 07/21/24 18:04> <Ramakrishna Daniel - Last Filed: 07/21/24 20:52> - General Exam Comments Initial Comments: Visual Physical Exam Vital signs reviewed General: Well-appearing, nontoxic, no acute distress. Head: Normocephalic, atraumatic Eyes: PERRLA, EOMI ENT: Airway patent Chest: Nonlabored breathing Skin: No visual rash, normal skin tone Neuro: Alert and oriented 3 Musculoskeletal: No gross abnormalities (Martinez Shaffer) General: Appears in no acute distress. HEAD: Normal with no signs of head trauma. EYES: EOMI. ENT: Legal deafness RESPIRATORY: No respiratory distress. C/V: Regular rate and rhythm. ABD: Abdomen is nondistended. EXT: No obvious deformity. SKIN: No rashes or lesions observed on exposed skin. NEURO: Alert and oriented. (Ramakrishna Daniel) Course Vital Signs 07/21/24 18:00 Temperature 98.7 F Pulse Rate 100 Respiratory 18 Rate Blood Pressure 128/82 O2 Sat by Pulse 100 Oximetry Medical Decision Making <Martinez Shaffer - Last Filed: 07/21/24 18:04> <Ramakrishna Daniel - Last Filed: 07/21/24 20:52> - Medical Decision Making I completed the quick note portion of this chart signed LIEN Richter (Martinez Shaffer) Was pt. sent in by a medical professional or institution (LEOBARDO Gregg, TRAIN CONTROL TECHNICIAN, urgent care, hospital, or residential...) When possible be specific @ -No Did you speak to anyone other than the patient for history (EMS, parent, family, police, friend...)? What history was obtained from this source @ -Spoke with patient's mother who assist with patient's past medical history. Did you review nursing and triage notes (agree or disagree)? Why? @ -I reviewed and agree with nursing and triage notes Were old charts reviewed (outside hosp., previous admission, EMS record, old EKG, old radiological studies, urgent care reports/EKG's, residential records)? Report findings @ -No old charts were reviewed Differential Diagnosis (chest pain, altered mental status, abdominal pain women, abdominal pain men, vaginal bleeding, weakness, fever, dyspnea, syncope, headache, dizziness, GI bleed, back pain, seizure, CVA, palpatations, mental health, musculoskeletal)? @ -Differential Mental Health Depression, anxiety, bipolar, psychosis, schizophrenia, borderline personality, situational depression, adjustment disorder, behavioral disorder, brain tumor, malingering, substance abuse, encephalopathy, medication reaction, dementia, hypothyroidism, degenerative neurologic disorder, lupus.... This is not meant to be all-inclusive list EKG interpreted by me (3pts min.). @ -None none X-rays interpreted by me (1pt min.). @ -None done CT interpreted by me (1pt min.). @ -None done U/S interpreted by me (1pt. min.). @ -None done What testing was considered but not performed or refused? (CT, X-rays, U/S, labs)? Why? @ -None What meds were considered but not given or refused? Why? @ -None Did you discuss the management of the patient with other professionals (professionals i.e. , PA, TRAIN CONTROL TECHNICIAN, lab, RT, psych nurse, child protective services social worker, home connect lpn, teacher, foreign service officer, watch case polisher)? Give summary @ -No Was smoking cessation discussed for >3mins.? @ -No Was critical care preformed (if so, how long)? @ -No Were there social determinants of health that impacted care today? How? (Homelessness, low income, unemployed, alcoholism, drug addiction, transportation, low edu. Level, literacy, decrease access to med. care, intermediate, rehab)? @ -No Was there de-escalation of care discussed even if they declined (Discuss DNR or withdrawal of care, Hospice)? DNR status @ -No What co-morbidities impacted this encounter? (DM, HTN, Smoking, COPD, CAD, Cancer, CVA, ARF, Chemo, Hep., AIDS, mental health diagnosis, sleep apnea, morbid obesity)? @ -None Was patient admitted / discharged? Hospital course, mention meds given and route, prescriptions, significant lab abnormalities, going to OR and other pertinent info. @ -Based on the patient's presentation and physical exam, presents for mental health evaluation originally seen as a quick note. I evaluated the patient when she was placed in room. Is not a threat to herself or others currently. BAT is 0. UDS is pending. Patient is medically cleared for evaluation by psychiatry. Disposition pending psychiatric evaluation. EPS Smita notified of the consult. She evaluate the patient and determined with psychiatry that she does not meet inpatient criteria for admission. Patient be discharged home with a safety plan. Undiagnosed new problem with uncertain prognosis? @ -No Drug Therapy requiring intensive monitoring for toxicity (Heparin, Nitro, Insulin, Cardizem)? @ -No Were any procedures done? @ -No Diagnosis/symptom? @ -Encounter for psychiatric evaluation. Acute, or Chronic, or Acute on Chronic? @ -Acute Uncomplicated (without systemic symptoms) or Complicated (systemic symptoms)? @ -Uncomplicated Side effects of treatment? @ -No Exacerbation, Progression, or Severe Exacerbation? @ -No Poses a threat to life or bodily function? How? (Chest pain, [place], [place], pneumonia, PE, COPD, DKA, ARF, appy, cholecystitis, CVA, Diverticulitis, Homicidal, Suicidal, threat to staff... and all critical care pts) @ -Unlikely at this time. (Ramakrishna Daniel) Disposition <Martinez Shaffer - Last Filed: 07/21/24 18:04> Is patient prescribed a controlled substance at d/c from ED?: No Time of Disposition: 20:45 <Ramakrishna Daniel - Last Filed: 07/21/24 20:52> Clinical Impression: Encounter for psychiatric assessment Disposition: HOME SELF-CARE Condition: Good Additional Instructions: Follow safety plan Referrals: Link Hidalgo MD [Primary Care Provider] - 1-2 days
== END 2024-07-21 21:01 | disposition home or self-care (01) ==
LOC: EC 17:44
DX: Z13.30 Encounter for screening examination for mental health and behavioral disorders, unspecified (principal)
CPT/HCPCS: 82075; 99284